=== PATIENT | female | born 1960 | race African-American/Black ===

== ENCOUNTER 2016-04-11 05:04 | Day surgery (SDC) | payer OTHER ==
[2016-04-11] VITALS (31 sets, daily range): BP systolic 84–120; BP diastolic 43–86; PULSE 78–92; RESP 12–25; TEMP 98; Ht 175.3 cm; Wt 58.0 kg
[~2016-04-11] VITALS: Ht 175.3 cm; Wt 58.0 kg
[~2016-04-11 05:04] MED LIST: IBUP-1542 PO; METO-429 PO; TRAM50TA2 PO
[2016-04-11] MEDS ORDERED: SOD CHLORIDE 0.9% 1,000 ML IV STA (07:10)
[2016-04-11] MEDS ORDERED: FAMOTIDINE 20 MG INJ IV STA (07:10)
[2016-04-11] MEDS ORDERED: KETOROLAC 15 MG INJ IV STA (07:10)
[2016-04-11] MEDS ORDERED: ONDANSETRON 4 MG INJ IV STA (07:10)
[2016-04-11 07:58] LABS: ADD UMIC YES; URINE BILIRUBIN (Dip) NEGATIVE (NEGATIVE); URINE BLOOD (Dip) 1+ (NEGATIVE); URINE COLOR LT. YELLOW (YELLOW); URINE GLUCOSE (Dip) NEGATIVE (NEGATIVE); URINE KETONES (Dip) NEGATIVE (NEGATIVE); URINE LEUKOCYTE ESTERASE (Dip) 1+ (NEGATIVE); URINE NITRITE (Dip) NEGATIVE (NEGATIVE); URINE TOTAL PROTEIN (Dip) 1+ (NEGATIVE); URINE UROBILINOGEN (Dip) 0.2 E.U./dL (0.1-1.0)
[2016-04-11 08:06] LABS: BACTERIA,URINE FEW; URINE RBCS 0-2 /HPF (0)
[2016-04-11 08:09] LABS: TRICHOMONAS,URINE FEW
[2016-04-11 08:11] LABS: CHLORIDE 96 mmol/L (97-110); POTASSIUM 3.6 mmol/L (3.5-5.1); SODIUM 141 mmol/L (135-144)
[2016-04-11] MEDS ORDERED: morphine 4 MG/ML VIAL IV STA (08:11)
[2016-04-11] MEDS ORDERED: morphine 4 MG/ML VIAL ONE (08:12)
[2016-04-11 08:13] LABS: ANION GAP 19 (8-16); BILIRUBIN,INDIRECT 0.2 mg/dl (0-1.1); BILIRUBIN,TOTAL 0.2 mg/dl (0.2-1.3); CARBON DIOXIDE 30 mmol/L (21-31); CREATININE 0.89 mg/dl (0.44-1.00)
[2016-04-11 08:14] LABS: ALANINE AMINOTRANSFERASE 19 IU/L (13-69); ALBUMIN/GLOBULIN RATIO 0.93; ALKALINE PHOSPHATASE 109 IU/L (42-121); ASPARTATE AMINO TRANSFERASE 19 IU/L (15-46); BLOOD UREA NITROGEN 15 mg/dl (7-20); CALCIUM 9.7 mg/dl (8.4-10.2); GLUCOSE 96 mg/dl (70-220); TOTAL PROTEIN 8.3 g/dl (6.1-8.1)
--- NOTE | 2016-04-11 08:15 | RADRPT ---
PROCEDURE: XR Chest. CLINICAL INDICATION: Abdominal pain TECHNIQUE: AP view of the chest was obtained. COMPARISON: 12/06/2012 FINDINGS: The cardiomediastinal silhouette is within normal limits. There is a small calcified nodule at the right lung base. There are calcified right mediastinal and hilar nodes. Findings are unchanged. Otherwise the lungs are clear. No pleural effusion or pneumothorax is evident. There is free air u nder the left hemidiaphragm. IMPRESSION: Free air under the left hemidiaphragm; findings suspicious for perforated viscus. CT abdomen-pelvis recommended for further evaluation. Post granulomatous changes. Results called to Dr. ASHBY on 04/11/2016 8:11 AM. RPTAT: VV .Dayron Hidalgo MD, Date Time Electronically viewed and signed by .Dayron Hidalgo MD, on 04/11/2016 08:15 .O/
[2016-04-11 08:16] LABS: BASOPHILS % 0.1 % (0.0-2.0); HEMATOCRIT 41.9 % (37.0-47.0); HEMOGLOBIN 14.2 g/dl (12.0-16.0); LYMPHOCYTES # 1.3 10^3/ul (0.8-2.9); LYMPHOCYTES % 8.1 % (15.0-51.0); MEAN CORPUSCULAR HEMOGLOBIN 29.7 pg (29.0-33.0); MEAN CORPUSCULAR HGB CONC 33.8 g/dl (32.0-37.0); MEAN CORPUSCULAR VOLUME 87.7 fl (82.0-101.0); MONOCYTE # 0.6 10^3/ul (0.3-0.9); NEUTROPHIL # 14.4 10^3/ul (1.6-7.5); NEUTROPHILS % 87.8 % (39.0-77.0); PLATELET COUNT 273 10^3/UL (140-440); RED BLOOD COUNT 4.78 10^6/ul (4.20-5.40); RED CELL DISTRIBUTION WIDTH 15.9 % (11.5-14.5); UNCORRECTED WBC 16.4 10^3/ul (4.8-10.8); WHITE BLOOD COUNT 16.4 10^3/ul (4.8-10.8)
[2016-04-11] MEDS ORDERED: AMLO-147 PO (08:16)
[2016-04-11] MEDS ORDERED: METO-448 PO (08:16)
[2016-04-11 08:28] LABS: TROPONIN-I < 0.012 ng/ml (0.00-0.12)
[2016-04-11 08:33] LABS: CONDITION 1; LH ANALYZER COMMENTS 1; SUSPECT 1
[2016-04-11] MEDS ORDERED: SODIUM CHLORIDE 0.9% 1L BAG IV* STA (08:47)
[2016-04-11] MEDS ORDERED: PIPER-TAZO 3.375 GM IV (PMX) 100 ML IVPB STA (08:47)
[2016-04-11] MEDS ORDERED: metroNIDAZOLE 500 MG/NS (PMX) 100 ML IVPB STA (08:47)
--- NOTE | 2016-04-11 08:53 | RADRPT ---
PROCEDURE: CT Abdomen and Pelvis without contrast. CLINICAL INDICATION: Abdominal pain TECHNIQUE: CT scan of the abdomen and pelvis was performed on a multidetector high-resolution CT s canner without intravenous contrast. Coronal and sagittal reformatted images were obtained from the axial source images. Images were reviewed on a high-resolution PACS workstation. The total exam CTD I equals 6mGy and the total exam DLP equals 297mGy-cm. One or more of the following dose reduction t echniques were used: Automated exposure control, Adjustment of the mA and/or kV according to patient size, and/or use of iterative reconstruction technique. COMPARISON: Correlation chest x-ray today FINDINGS: Evaluation of the solid organs is limited given the lack of intravenous contrast administration. Right lower lobe calcified granuloma. Emphysematous changes. Upper abdominal pneumoperitoneum is identified. The liver, pancreas, and adrenals are grossly unremarkable. Numerous splenic calcifications are iden tified. No focal pericholecystic inflammatory changes. No hydronephrosis. No renal or ureteral stone. No bowel obstruction. Appendix not definitively visualized. Small amount of pelvic free fluid. Aortoiliac atherosclerosis. IMPRESSION: Upper abdominal pneumoperitoneum is most suspicious for bowel perforation. Right lower lobe calcified granuloma and numerous splenic calcifications are likely a sequela of rhonda or granulomatous disease. Emphysema. Small volume of pelvic free fluid. A call report was made to Dr. ASHBY at 04/11/2016 8:52:40 AM. RPTAT: AA .Narinder Meyers MD, Date Time Electronically viewed and signed by .Narinder Meyers MD, MD on 04/11/2016 08:53 .T/
[2016-04-11] MEDS ORDERED: SOD CHLORIDE 0.9% 1,000 ML IV SCH (09:21)
--- NOTE | 2016-04-11 09:26 | ERA ---
ER Documentation Chief Complaint Date/Time DATE: 04/11/16 TIME: 09:23 Chief Complaint abdominal pain since yesterday HPI This is a 55-year-old female presents to the emergency room for evaluation of abdominal pain. The patient states that she has had abdominal pain for the past 3 days in the localizes to the midportion of her abdomen. The patient states that she notices abdominal pain after sexual intercourse 3 days ago. She states that it is an achy pain with no radiation. She does state that she does have a history of cocaine use and was using cocaine heavily for the past 3 days and also states that she has a history of constipation is been drinking an [id number] medication to help with constipation ROS All systems reviewed and are negative except as per history of present illness. Medications Home Meds Reported Medications Metoprolol Tartrate* (Lopressor*) 25 Mg Tab, 25 MG PO BID, #60 TAB 04/11/16 Amlodipine Besylate* (Amlodipine Besylate*) 10 Mg Tablet, 10 MG PO DAILY, #30 TAB 04/11/16 Discontinued Reported Medications Metoprolol Tartrate* (Lopressor*) 50 Mg Tab, 50 MG PO BID, TAB 08/02/14 Discontinued Scripts Tramadol HCl (Tramadol HCl) 50 Mg Tablet, 50 MG PO Q6 Y for SEVERE PAIN LEVEL 7- 10, #20 TAB Prov:NILO NIEVES ASSISTANT SERVICE MANAGER 01/23/16 Ibuprofen* (Motrin*) 600 Mg Tab, 600 MG PO Q6H Y for PAIN AND OR ELEVATED TEMP, #30 TAB Prov:NILO NIEVES NP 01/23/16 Allergies Allergies: Coded Allergies: No Known Allergy (Verified , 04/11/16) PMhx/Soc History of Surgery: No Anesthesia Reaction: No Hx Neurological Disorder: No Hx Respiratory Disorders: No Hx Cardiac Disorders: Yes (HTN) Hx Psychiatric Problems: No Hx Miscellaneous Medical Probl: No Hx Alcohol Use: No Hx Substance Use: No Hx Tobacco Use: Yes Smoking Status: Current every day smoker Physical Exam Vitals Vital Signs Date Time Temp Pulse Resp B/P Pulse Ox O2 Delivery O2 Flow Rate FiO2 04/11/16 09:12 98.0 75 18 110/82 100 Room Air 04/11/16 07:30 78 18 123/92 100 Room Air 04/11/16 05:12 97.7 89 18 113/64 99 Physical Exam INITIAL VITAL SIGNS: Reviewed by me GENERAL: The patient is well developed and appropriate for usual state of health in no apparent distress HEENT: Pupils equal, round, and reactive to light. EOMI. There is no scleral icterus. NECK: C-spine is soft and supple, there is no meningismus. There is no cervical lymphadenopathy. LUNGS: Clear to auscultation bilaterally. There are no rales, wheezes or rhonchi. HEART: Regular rate and rhythm, no murmurs, clicks, rubs or gallops. ABDOMEN: Epigastric tenderness to palpation with some mild guarding in the right upper quadrant or left upper quadrant, hyperactive bowel sounds, EXTREMITIES: There is no peripheral cyanosis or edema. No focal swelling or erythema. NEUROLOGICAL: The patient moves all four extremities with 5/5 strength. Cranial nerves II - XII are intact. Normal gait. Alert and oriented SKIN: There is no apparent rash or petechiae. HEME/LYMPHATIC: There is no evidence of excessive bruising or lymphedema. PSYCHIATRIC: The patient does not appear anxious or depressed. Result Diagram: 04/11/16 0730 04/11/16 0730 Results 24 hrs Laboratory Tests Test 04/11/16 07:30 Alanine Aminotransferase (ALT/SGPT) 19IU/L Albumin 4.0g/dl Albumin/Globulin Ratio 0.93 Alkaline Phosphatase 109IU/L Anion Gap 19 Aspartate Amino Transf (AST/SGOT) 19IU/L Basophils # 0.010^3/ul Basophils % 0.1% Blood Morphology Comment Blood Urea Nitrogen 15mg/dl Calcium Level 9.7mg/dl Carbon Dioxide Level 30mmol/L Chloride Level 96mmol/L Creatinine 0.89mg/dl Direct Bilirubin 0.00mg/dl Eosinophils # 0.010^3/ul Eosinophils % 0.0% Globulin 4.30g/dl Glucose Level 96mg/dl Hematocrit 41.9% Hemoglobin 14.2g/dl Indirect Bilirubin 0.2mg/dl Lipase 13U/L Lymphocytes # 1.310^3/ul Lymphocytes % 8.1% Mean Corpuscular Hemoglobin 29.7pg Mean Corpuscular Hemoglobin Concent 33.8g/dl Mean Corpuscular Volume 87.7fl Mean Platelet Volume 8.0fl Monocytes # 0.610^3/ul Monocytes % 4.0% Neutrophils # 14.410^3/ul Neutrophils % 87.8% Nucleated Red Blood Cells # 0.010^3/ul Nucleated Red Blood Cells % 0.0/100WBC Platelet Count 41188^3/UL Potassium Level 3.6mmol/L Red Blood Count 4.7810^6/ul Red Cell Distribution Width 15.9% Sodium Level 141mmol/L Total Bilirubin 0.2mg/dl Total Protein 8.3g/dl Troponin I < 0.012ng/ml Urine Bacteria FEW Urine Bilirubin NEGATIVE Urine Clarity CLEAR Urine Color LT. YELLOW Urine Epithelial Cells RARE Urine Glucose NEGATIVE% Urine Hemoglobin 1+ Urine Ketones NEGATIVE Urine Leukocyte Esterase 1+ Urine Microscopic RBC 0-2/HPF Urine Microscopic WBC 10-25/HPF Urine Nitrite NEGATIVE Urine Specific Madelia 1.010 Urine Total Protein 1+ Urine Trichomonas FEW Urine Urobilinogen 0.2 E.U./dL Urine pH 6.5 White Blood Count 16.410^3/ul Current Medications Medications (Trade) Dose Ordered Sig/Lillie Route PRN Reason Start Time Stop Time Status Last Admin Dose Admin Sodium Chloride (NS) 1,000 ml @ 1,000 mls/hr Q1H STAT IV 04/11/16 07:10 04/11/16 08:09 DC 04/11/16 07:14 Ondansetron HCl (Zofran Inj) 4 mg ONCE STAT IV 04/11/16 07:10 04/11/16 07:11 DC 04/11/16 07:14 Famotidine (Pepcid Iv) 20 mg ONCE STAT IV 04/11/16 07:10 04/11/16 07:11 DC 04/11/16 07:14 Ketorolac Tromethamine (Toradol) 15 mg ONCE STAT IV 04/11/16 07:10 04/11/16 07:11 DC 04/11/16 07:14 Morphine Sulfate (morphine) 4 mg ONCE STAT IV 04/11/16 08:11 04/11/16 08:13 DC 04/11/16 08:16 Morphine Sulfate (morphine) 4 mg STK-MED ONCE .ROUTE 04/11/16 08:12 04/11/16 08:13 DC Sodium Chloride 1800 ml 1,800 ml BOLUS OVER 2 HOURS STAT IV* 04/11/16 08:47 04/11/16 08:50 DC 04/11/16 09:06 Piperacillin Sod/ Tazobactam Sod 100 ml @ 200 mls/hr ONCE STAT IVPB 04/11/16 08:47 04/11/16 09:16 DC 04/11/16 09:05 Metronidazole 100 ml @ 100 mls/hr ONCE STAT IVPB 04/11/16 08:47 04/11/16 09:46 Sodium Chloride (NS) 1,000 ml @ 80 mls/hr [id number] IV 04/11/16 09:21 04/11/16 21:50 UNV Ondansetron HCl (Zofran Inj) 4 mg BRIDGE ORDER PRN IV NAUSEA AND/OR VOMITING 04/11/16 09:30 04/12/16 09:29 UNV Acetaminophen (Tylenol Tab) 650 mg ER BRIDGE PRN PO MILD PAIN/FEVER 04/11/16 09:30 04/12/16 09:29 UNV Procedures/MDM EKG: Rate/Rhythm: [Normal Sinus Rhythm] QRS, ST, T-waves: [No changes consistent w/ acute ischemia] Impression: [No evidence of ischemia or arrhythmia] Chest X-ray 1V Interpreted by me: Soft Tissue: Free air under diaphragm Bones: No acute abnormalities Mediastinum/Cardiac Silhouette/Lungs: [No acute abnormalities] CT abdomen pelvis without: Upper abdominal pneumoperitoneum is most suspicious for bowel perforation. Right lower lobe calcified granuloma and numerous splenic calcifications are likely a sequela of prior granulomatous disease. Emphysema. Small volume of pelvic free fluid. This 55-year-old female presents to the ER for evaluation of abdominal pain and discomfort. This patient did have mild guarding on my examination. I did obtain a chest x-ray which shows free air under the diaphragm. CT of the abdomen pelvis was obtained which does show pneumoperitoneum suspicious for a bowel perforation. The patient does have a mild leukocytosis. Patient was started on vancomycin and Flagyl per protocol. I have contacted our on-call general surgeon, Dr. Feliz who is aware and states that he will likely take the patient to the operating room for exploration. This patient is hemodynamically stable at this time, and will be placed on the MedSur floor under the care of Dr. Johnston. Critical Care: Excluding all billable procedures Time: 38] minutes Treatments/Evaluations: Close monitoring and treatment of unstable vital signs, cardiorespiratory, and neurologic status, while maintaining tight balance of fluid, respiratory, and cardiac interventions. Departure Diagnosis: Primary Impression: Bowel perforation Additional Impression: Abdominal pain Condition: Serious KEVIN ASHBY DO Apr 11, 2016 09:26
[2016-04-11 09:27] LABS: PROTIME 13.2 Sec (12.2-14.2)
[2016-04-11 09:28] LABS: PARTIAL THROMBOPLASTIN TIME 37.1 Sec (25.0-35.0)
[2016-04-11] MEDS ORDERED: ACETAMINOPHEN 325 MG TAB PO PRN (09:30)
[2016-04-11] MEDS ORDERED: ONDANSETRON 4 MG INJ IV PRN ×2 (09:30→10:00)
[2016-04-11] MEDS ORDERED: morphine 2 MG INJ IV PRN (10:00)
[2016-04-11] MEDS ORDERED: LACTATED RINGER'S 1,000 ML IV SCH (10:00)
[2016-04-11] MEDS ORDERED: NACL 0.9% 3 ML SYG IV SCH (10:00)
--- NOTE | 2016-04-11 10:15 | HPN ---
Date/Time of Note Date/Time of Note DATE: 04/11/16 TIME: 10:14 Interval H&P Admission Note Pt. seen H&P reviewed: No system changes Pt. seen H&P reviewed. No system changes (I attest that I have seen and examined the patient and reviewed the operation in detail, as well as its risks , benefits and alternatives of the operation). I attest that I have seen and examined the patient and reviewed in detail the operation, and its associated risks, benefits and alternative. I have answered all the patient's questions to the best of my ability and the patient wishes to proceed. Please refer to rest of electronic medical record for additional updates. GEGE DORMAN M.D. Apr 11, 2016 10:15
[2016-04-11] MEDS ORDERED: PROPOFOL 20 ML ONE (10:38)
[2016-04-11] MEDS ORDERED: ROCURONIUM 50 MG INJ ONE (10:38)
[2016-04-11] MEDS ORDERED: MIDAZOLAM 1 MG/ML 2 ML INJ ONE (10:39)
[2016-04-11] MEDS ORDERED: DEXAMETHASONE 4 MG/ML 1 ML INJ ONE (10:39)
[2016-04-11] MEDS ORDERED: ONDANSETRON 4 MG INJ ONE (10:39)
[2016-04-11] MEDS ORDERED: SUCCINYLCHOLINE CHLORIDE 100 MG/5 ML SYG IV ONE (10:56)
[2016-04-11] MEDS ORDERED: EPHEDrine SULFATE 50 MG/5 ML SYG ONE (10:56)
[2016-04-11] MEDS ORDERED: LIDOCAINE 2% JELLY 5 ML ONE (10:56)
[2016-04-11] MEDS ORDERED: BUPIVACAINE 0.25% (MPF) 30 ML INJ ONE (11:20)
--- NOTE | 2016-04-11 11:48 | CONS ---
[facility] initial inpatient consultation note. DATE OF CONSULTATION: 04/11/2016 PLACE OF SERVICE: [facility] Emergency Department ASSESSMENT AND PLAN: A very pleasant 55-year-old lady with some comorbidities including prior substance abuse and current marijuana use, current every-day smoker, and hypertension who appears to have perforated bowel, most likely a perforated duodenal ulcer. Other diagnoses in the differential includes other types of perforation and the small intestine and colon. I have explained to the patient our findings and our concerns for the perforated bowel and I have recommended emergency exploration in the form of laparoscopic, possible open exploration with possible bowel resection and possible ostomy. We reviewed the risks, benefits and alternatives in detail and I answered the patient's questions to the best of my ability. I believe that the patient understands and wishes to proceed with the plans. Note that there were no family present during my discussions with the patient. With above assessment, I've recommended the following: Expedited trip to the operating room for above. Thank you again for allowing us to participate in the care of this very pleasant lady and I am certain her wonderful family. If there are any questions , please feel free to call me at [phone]. TOTAL VISIT TIME: 45 minutes of which more than half was spent in [id number] discussion with the patient as well as coordination of care between multiple physicians and providers. UPDATED CLINICAL SUMMARY: A very pleasant 55-year-old lady with comorbid issues including hypertension, every day smoker status, migraines, herpes infection, genital herpes, and positive substance abuse history per tox screen, (cocaine) who was admitted through [facility] Emergency Department on 04/11/2016 with free air under the diaphragm. COMORBIDITIES: 1. Hypertension. 2. Substance abuse (cocaine). 3. Current every day smoker. DATE OF ADMISSION: 04/11/2016 HISTORY OF PRESENT ILLNESS: The patient is a very pleasant 55-year-old lady with above-mentioned history who was admitted through the emergency department at [facility] on 04/11/2016 with abdominal pain of 1 to 2-day duration that brought her into the emergency room and a workup that showed a white blood cell count of 16.4, a chest x-ray that showed free air under the diaphragm and a CT scan of the abdomen and pelvis that showed upper abdominal pneumoperitoneum, most suspicious for bowel perforation. There was also right lower lobe calcified granuloma and numerous splenic calcifications likely sequelae of prior granulomatous disease, emphysema, and a small volume of pelvic free fluid. I was kindly asked to consult and I promptly saw the patient in the emergency department and did a complete history and physical myself. The patient did not have any history of similar pains in the past but has had abdominal discomfort on and off for a number of years. Note that she has visited our emergency department on multiple occasions and she has also been admitted before for various complaints. Patient had her last bowel movement in the last few days and no blood in the stool or urine. No prior significant cardiopulmonary disease other than hypertension and no other complaints. ALLERGIES: NO KNOWN DRUG ALLERGIES. MEDICATIONS: 1. Amlodipine. 2. Lopressor. SOCIAL HISTORY: The patient lives with her family. She has a daughter who lives in town. She is an everyday smoker and occasionally drinks alcohol. There is reported marijuana use as well as history of cocaine abuse in the past. FAMILY HISTORY: No major reported medical, surgical or oncologic problems in the family. REVIEW OF SYSTEMS: Other than the above-mentioned, there are no other pertinent positives or pertinent negatives in a complete 14-point review of systems. PHYSICAL EXAMINATION: GENERAL: The patient appears to be a very pleasant -[place] lady of non - descent, appearing stated age, lying in bed comfortably and in no acute distress. BMI is 18.9. VITAL SIGNS: Show afebrile state and blood pressure is 110/82, pulse 75, respiratory rate 18, pulse oximetry 100% on room air. HEENT: Normocephalic and atraumatic. Extraocular muscles and hearing are grossly intact bilaterally and symmetrically. Sclerae are nonicteric. Oral cavity is clear; oral mucosa appeared to be pink and moist. Dentition: fair. NECK: Supple. There is no lymphadenopathy or JVD. There is no submental, submandibular or supraclavicular lymphadenopathy. CHEST: Rises symmetrically with each breath; patient is breathing comfortably. There are no audible wheezes, rales or rhonchi on the gross exam. HEART: HPulse is regular and palpable on the *right wrist. Capillary refill was normal. Carotid pulses are palpable bilaterally and symmetrically in the neck. EXTREMITIES: Lower extremities contain no pitting edema around the ankles bilaterally and symmetrically. ABDOMEN: Her abdomen is soft, nondistended and moderately tender to palpation with evidence of slight peritoneal signs and mild guarding. No evidence of organomegaly, caput medusae, engorged subcutaneous veins, or ascites. SKIN: Appears to be pink and feels warm to touch. NEUROLOGIC: Awake, alert, and follows commands appropriately. LABORATORY DATA: White blood cell count 16.4, platelets 273. Electrolytes are normal. CO2 30, creatinine 0.89. Liver function and injury parameters are normal. Albumin 4.0, lipase 13. INR 1.0. Urinalysis negative for nitrite and 1+ positive for leukocyte esterase. IMAGING: Pertinent images were reviewed above. Note that I personally reviewed all these images and I agree in general with their overall reported findings. Dictated By: GEGE VÁSQUEZ/LORE Conf#: [id number] DID#: [id number] MTDD
[2016-04-11] MEDS ORDERED: GLYCOPYRROLATE 0.4 MG INJ ONE (12:12)
[2016-04-11] MEDS ORDERED: NEOSTIGMINE 3 MG/3 ML SYRINGE ONE (12:12)
[2016-04-11] MEDS ORDERED: HYDROmorphONE (0.2 MG/ML) 10ML SYG IV ONE (12:49)
--- NOTE | 2016-04-11 13:01 | OPR ---
Date/Time of Note Date/Time of Note DATE: 04/11/16 TIME: 13:01 Operative Report Operative Findings [facility] INPATIENT OPERATIVE NOTE PLACE OF SERVICE: [facility] DATE OF SURGERY: 04/11/2016 PREOPERATIVE DIAGNOSIS: 1. Perforated viscus. 2. Substance abuse (cocaine). 3. Current every day smoker. 4. Hypertension. POSTOPERATIVE DIAGNOSIS: 1. Likely previous perforated viscus with self-sealing 2. Substance abuse (cocaine). 3. Current every day smoker. 4. Hypertension. OPERATION: 1. Exploratory laparoscopy 2. Abdominal lavage SURGEON: Gege Dorman M.D. FORENSIC IDENTIFICATION SPECIALIST: Tim ANESTHESIA: General endotracheal tube anesthesia ANESTHESIOLOGIST: Lilia Pelaez M.D. BRIEF SUMMARY: An otherwise uncomplicated laparoscopic exploration was performed with findings of free fluid and air in the abdominal cavity reminiscent of upper GI perforation (e.g perforated duodenal ulcer) but no obvious hole and no need for any repairs. Abdominal lavage was performed. BRIEF HISTORY: The patient is a very pleasant 55-year-old lady with comorbid issues including hypertension, every day smoker status, migraines, herpes infection, genital herpes, and positive substance abuse history per tox screen, (cocaine) who was admitted through [facility] Emergency Department on 04/11/2016 with free air under the diaphragm. Given the clinical picture, I recommended laparoscopic, possible open exploration with possible bowel resection and possible ostomy. I met with the patient) no family present during any my discussions with the patient) and we reviewed the operation in detail as well as the risks, benefits, alternatives, and expected outcomes of this operation. After careful consideration of all the risks, benefits, and alternatives, the patient appeared to understand those risks and wished to proceed with surgery. For a detailed report of my consultation with patient, please refer to my separate consultation note. STATEMENT OF THE INFORMED CONSENT: The patient appeared to understand the risks of the operation to include, but not be limited to risk of postoperative pain and scar tissue, possible infection or bleeding requiring other interventions such as opening the wound, placement of drainage catheters, or other operative interventions; possible injury to surrounding to structures including bowel, bladder, bile duct, or blood vessels, or solid organs such as liver, kidney, or pancreas requiring other interventions or procedures; possible leakage of bowel from anastomotic sites or suture lines causing significant increase in morbidity and mortality and requiring multiple interventions including but not limited to, placement of drainage catheters, imaging studies, as well as operative interventions; possible other source of sepsis such as urinary tract infections or pneumonias, or other sources of potentially life threatening problems such as deep venous thrombus formation causing pulmonary embolism, myocardial arrhythmias and infarctions, and even . After careful consideration of all their options, the patient and family appeared to understand and wished to proceed with surgery. DESCRIPTION OF PROCEDURE: After obtaining informed consent, the patient was brought into the operating room and was placed in a normal supine position, where successful general endotracheal tube anesthesia was performed. Intravenous access was already in place and intravenous antimicrobials had been appropriately chosen and dosed prior to the operation. The patient's abdominal skin was prepped and draped from the nipple line down to the level of the upper thighs in the usual sterile fashion. We then called a surgical time-out where the patient's identification, date of , nature of the operation, allergies , presence of intravenous antimicrobials, presence of needed equipment, and any other concerns were reviewed and agreed upon by all members of the operating room team. We then started the operation by placing a 5 mm skin incision in the left upper quadrant and introducing a 5 mm [employer] trocar into the peritoneal space using direct entry technique. Note that there was no indication of obvious injury to underlying structures once we entered the peritoneum. We insufflated the abdominal cavity to a maximum pressure of 15 mmHg and again confirmed lack of any injury to underlying structures. Visualization of the abdominal cavity showed slight amount of greenish fluid in the abdominal cavity but no evidence of owen stool or bile. The overall look of the structures were somewhat normal but consistent with a recent enteric perforation. With this information, I injected the future sites of our other trochars with quarter percent Marcaine with epinephrine and introduced 2 more 5 mm trochars into the abdominal cavity under direct visualization. With our instruments in place we then performed a very meticulous exploration of the abdominal cavity with running the bowel essentially from the GE junction all the way down to the rectum. No obvious perforation was found. The stomach appeared to have adhesions onto the undersurface of the left lobe of the liver and the wall was somewhat friable. No obvious area of duodenal ulcer perforation was noted along the anterior wall of the stomach and on the first and second portion of duodenum. The gallbladder was distended but not inflamed and not necrotic. Small intestine appeared to be healthy. Colon appeared to be healthy. Appendix was normal. No sigmoid or descending colon obvious abnormalities. There was no evidence of any actual food or stool in the abdominal cavity. We distended the stomach with normal saline and again did not notice any leakage of fluid from the stomach or first portion of duodenum. With this information, we irrigated the abdominal cavity with at least appears of normal saline and lavaged the excess out prior to removing all her equipment from the abdominal cavity including the pneumoperitoneum, closing the 5 mm trocar sites on the fascia with 3-0 Vicryl suture given how thin the patient is , injecting the trochar sites with quarter percent Marcaine with epinephrine, washing the wounds with copious amounts of normal saline, and then closing the skin using 4-0 Monocryl suture. Light dressing was then applied. At the end of the operation, both the sponge count and needle count were reportedly correct x2. The patient tolerated the procedure without any reported complications. ESTIMATED BLOOD LOSS: Less than 10 mL. BLOOD OR BLOOD PRODUCT TRANSFUSIONS: None to my knowledge. SPECIMENS: None COMPLICATIONS: None. DISPOSITION: Recovery area. Disclaimer: Inadvertent spelling and grammatical errors are likely due to EHR/ dictation software use and do not reflect on the quality of delivered patient care. Also, please note that the electronic time recorded on this node does not necessarily reflect the actual time of the visit. GEGE DORMAN M.D. Apr 11, 2016 13:01
[2016-04-11] MEDS ORDERED: HYDROmorphONE 1 MG/ML SYG IV STA (13:20)
[2016-04-11] MEDS ORDERED: HYDROmorphONE 1 MG/ML SYG IV PRN (13:30)
[2016-04-11] MEDS ORDERED: HYDROCODONE/APAP (5/325) TAB PO PRN ×2 (13:30)
[2016-04-11] MEDS ORDERED: BISACODYL 10 MG SUPP PR PRN (13:30)
[2016-04-11] MEDS ORDERED: DOCUSATE SODIUM 100 MG CAP PO PRN (13:30)
[2016-04-11] MEDS ORDERED: NA PHOSPHATE/BIPHOS 133 ML ENEMA PR PRN (13:30)
[2016-04-11] MEDS ORDERED: HYDROmorphONE (0.2 MG/ML) 10ML SYG IV PRN ×3 (14:00)
[2016-04-11] MEDS ORDERED: LORAZEPAM 2 MG INJ IV PRN (14:00)
[2016-04-11] MEDS ORDERED: EPHEDrine SULFATE 50 MG/5 ML SYG IV PRN (14:00)
[2016-04-11] MEDS ORDERED: DIPHENHYDRAMINE 50 MG INJ IV PRN (14:00)
[2016-04-11] MEDS ORDERED: MEPERIDINE 25 MG INJ IV PRN (14:00)
[2016-04-11] MEDS: D5W-0.45 NACL + KCL 20 MEQ 1,000 ML IV SCH ×2 (15:20→23:33)
--- NOTE | 2016-04-11 16:45 | HP ---
Date/Time of Note Date/Time of Note DATE: 04/11/16 TIME: 16:36 Assessment/Plan VTE Prophylaxis VTE Prophylaxis Intervention: SCD's Lines/Catheters IV Catheter Type (from Nrs): Peripheral IV Assessment/Plan Chief Complaint/Hosp Course Assessment and plan 1. Bowel perforation. Patient status post Exploratory laparoscopy with noted likely previous perforated viscus with self-healing. Continue on IV fluids. Advance diet per surgeon recommendations. Analgesics as needed. 2. History of essential hypertension. Remain stable at present. We'll provide with antihypertensives for systolic blood pressure greater than 160. 3. Current every day smoker. Patient does report severe smoking 1 pack every 3 days for over 20 years. Cessation advised. Patient to be offered nicotine patch 4. History of cocaine use. Cessation advised. 5. Leukocytosis likely secondary to #1. Afebrile at present. Continue on Zosyn for now Admission process time is 40 minutes Discussed plan of care with Dr. Johnston Problems: HPI/ROS Admit Date/Time Admit Date/Time Hx of Present Illness This is a 55-year-old female with past mental history of hypertension, drug use with marijuana/cocaine (per patient), chronic cigarette smoker, who came to [facility] due to reports of acute abdominal pain that was diffuse and 10 out of 10 in intensity. According to the patient she had abdominal pain 1 day prior to admission with associated nausea but no vomiting. She did not report eating anything prior to this. Her pain reportedly got worse and subsequently went to [facility]. Upon further imaging with abdominal CT scan there was seen up her abdominal pneumoperitoneum suspicious for bowel perforation. There is also seen right lower lobe calcified granuloma numerous splenic calcifications likely a sequelae of prior granulomatous disease. Patient was also seen with emphysema per CT abdomen. Patient also was noted with leukocytosis but afebrile. Patient was placed on IV fluids as well as Zosyn antibiotic. She was seen by general surgeon and did undergo exploratory laparoscopy and abdominal lavage. There was seen likely previous perforated viscus with self-healing. Patient did tolerate procedure well and she did report less abdominal pain after procedure. Currently the patient is alert and oriented. Vital signs remain stable. We will evaluate her for the aforementioned issues ROS 12 point review of systems obtained and entirely negative except that mentioned in history of present illness PMH/Family/Social Past Medical History Medical/surgical history hypertension, drug use with marijuana/cocaine (per patient), chronic cigarette smoker, Social History Smoking Status: Current every day smoker Drug Use: cocaine, marijuana Exam/Review of Systems Vital Signs Vitals Vital Signs Date Time Temp Pulse Resp B/P Pulse Ox O2 Delivery O2 Flow Rate FiO2 04/11/16 15:53 97.7 90 20 112/70 04/11/16 14:28 98 Room Air 04/11/16 13:11 3.0 Exam Exam General: No acute signs or symptoms of distress Eyes: pupils equal round, Anicteric sclera Neck: Supple nontender, no JVD Cardiac: S1, S2 auscultated, regular rhythm and rate Pulmonary: Diminished bilaterally GI: Tender upon palpation status post surgical intervention Extremities: No edema bilateral lower extremities Skin: Surgical site on abdomen clean dry and intact Neurologic: Alert to person place and time and situation Labs Result Diagram: 04/11/16 0730 04/11/16 0730 Medications Medications Current Medications Sodium Chloride 1,000 ml @ 80 mls/hr [id number] IV ; Start 04/11/16 at 09:21; Stop 04/11/16 at 21:50 Piperacillin Sod/ Tazobactam Sod (Zosyn 3.375gm/ 100 ml (Pmx)) 100 ml @ 200 mls /hr Q6 IVPB ; Start 04/11/16 at 12:00 Amlodipine Besylate (Norvasc) 10 mg DAILY PO ; Start 04/12/16 at 09:00 Metoprolol Tartrate (Lopressor) 25 mg BID PO ; Start 04/11/16 at 21:00 Ondansetron HCl 4 mg 4 mg Q6H PRN IV NAUSEA AND/OR VOMITING; Start 04/11/16 at 10:00 Potassium Chloride/Dextrose/ Sod Cl (D5-1/2ns + KCl 20 Meq) 1,000 ml @ 100 mls/ hr Q10H IV Last administered on 04/11/16t 15:20; Admin Dose 100 MLS/HR; Start at 13:06 Acetaminophen/ Hydrocodone Bitart ([place] (5/325)) 1 tab Q4H PRN PO PAIN LEVEL 4 -7; Start 04/11/16 at 13:30 Acetaminophen/ Hydrocodone Bitart ([place] (5/325)) 2 tab Q4H PRN PO PAIN LEVEL 7 -10; Start 04/11/16 at 13:30 Hydromorphone HCl (Dilaudid) 0.5 mg Q2H PRN IV PAIN; Start 04/11/16 at 13:30 Hydromorphone HCl (Dilaudid) 1 mg Q2H PRN IV PAIN; Start 04/11/16 at 13:30 Docusate Sodium (Colace) 100 mg BID PRN PO CONSTIPATION; Start 04/11/16 at 13:30 Bisacodyl (Dulcolax Supp) 10 mg BID PRN [place] CONSTIPATION; Start 04/11/16 at 13:30 Sodium Biphosphate/ Sodium Phosphate (Fleet Enema) 133 ml BID PRN [place] CONSTIPATION; Start 04/11/16 at 13:30 Famotidine (Pepcid Iv) 20 mg DAILY IV ; Start 04/12/16 at 09:00 Enoxaparin Sodium (Lovenox) 40 mg DAILY SC ; Start 04/12/16 at 09:00 BREA TO Apr 11, 2016 16:45
[2016-04-11] MEDS: PIPER-TAZO 3.375 GM IV (PMX) 100 ML IVPB SCH ×3 (17:47→23:33)
[2016-04-11] MEDS: METOPROLOL 25 MG TAB PO SCH (20:13)
[2016-04-12] MEDS: PIPER-TAZO 3.375 GM IV (PMX) 100 ML IVPB SCH ×4 (05:29→23:31)
[2016-04-12 06:55] LABS: INR 0.93; PROTIME 12.5 Sec (12.2-14.2)
[2016-04-12 06:56] LABS: PARTIAL THROMBOPLASTIN TIME 32.6 Sec (25.0-35.0)
[2016-04-12 07:08] LABS: ALBUMIN 3.3 g/dl (3.3-4.9)
[2016-04-12 07:09] LABS: POTASSIUM 3.9 mmol/L (3.5-5.1)
[2016-04-12 07:11] LABS: ALBUMIN/GLOBULIN RATIO 1.06; BILIRUBIN,INDIRECT 0.1 mg/dl (0-1.1); BILIRUBIN,TOTAL 0.1 mg/dl (0.2-1.3); CREATININE 0.65 mg/dl (0.44-1.00); TOTAL PROTEIN 6.4 g/dl (6.1-8.1)
[2016-04-12 07:12] LABS: CALCIUM 9.1 mg/dl (8.4-10.2); MAGNESIUM 2.5 mg/dl (1.7-2.5)
[2016-04-12 07:13] LABS: CHOL/HDL RATIO 5.1 RATIO
[2016-04-12 07:31] LABS: THYROID STIMULATING HORMONE 0.244 MIU/L (0.465-4.680)
[2016-04-12 07:41] VITALS: BP 150/94; RESP 18
[2016-04-12 08:15] LABS: PHOSPHORUS 2.1 mg/dl (2.5-4.9)
[2016-04-12 08:19] LABS: HEMATOCRIT 33.2 % (37.0-47.0); HEMOGLOBIN 11.1 g/dl (12.0-16.0); RED BLOOD COUNT 3.86 10^6/ul (4.20-5.40); WHITE BLOOD COUNT 12.6 10^3/ul (4.8-10.8)
[2016-04-12 08:20] LABS: MEAN CORPUSCULAR HEMOGLOBIN 28.8 pg (29.0-33.0); MEAN CORPUSCULAR HGB CONC 33.4 g/dl (32.0-37.0); MEAN PLATELET VOLUME 10.5 fl (7.4-10.4); PLATELET COUNT 264 10^3/UL (140-440); RED CELL DISTRIBUTION WIDTH 15.3 % (11.5-14.5)
[2016-04-12] MEDS: AMLODIPINE 10 MG TAB PO SCH (08:47)
[2016-04-12] MEDS: FAMOTIDINE 20 MG INJ IV SCH (08:47)
[2016-04-12] MEDS: METOPROLOL 25 MG TAB PO SCH ×2 (08:47→20:06)
[2016-04-12] MEDS: ENOXAPARIN 40 MG/0.4 ML SYG SC SCH (08:55)
[2016-04-12] MEDS: D5W-0.45 NACL + KCL 20 MEQ 1,000 ML IV SCH ×2 (09:06→19:39)
[2016-04-12] MEDS: HYDROmorphONE 1 MG/ML SYG IV PRN ×2 (10:58→17:34)
[2016-04-12] MEDS ORDERED: AMLO-147 PO (11:13)
[2016-04-12] MEDS ORDERED: SENN-53 PO (11:13)
[2016-04-12] MEDS ORDERED: METO-448 PO (11:13)
[2016-04-12] MEDS ORDERED: HYDR-3498 PO (11:13)
--- NOTE | 2016-04-12 13:24 | PN ---
Date/Time of Note Date/Time of Note DATE: 04/12/16 TIME: 13:21 Assessment/Plan VTE Prophylaxis VTE Prophylaxis Intervention: SCD's Lines/Catheters IV Catheter Type (from [facility]): Sal[place] Assessment/Plan Chief Complaint/Hosp Course Assessment and plan 1. Bowel perforation. Patient status post Exploratory laparoscopy with noted likely previous perforated viscus with self-healing. cont post-op care. diet per surgeon recommendations. Analgesics as needed. 2. History of essential hypertension. Remain stable at present. We'll provide with antihypertensives for systolic blood pressure greater than 160. 3. Current every day smoker. Patient does report severe smoking 1 pack every 3 days for over 20 years. Cessation advised. 4. History of cocaine use. Cessation advised. 5. Leukocytosis likely secondary to #1. Afebrile at present. Continue on Zosyn for now DISPO/PLAN: cont diet per surgeon. cont on analgesics and post op care. d/c when medically stable and cleared by consultants. Discussed plan of care with Dr. Johnston Problems: Subjective 24 Hr Interval Summary Free Text/Dictation no s/s of distress. comfortable at this time. Exam/Review of Systems Vital Signs Vitals Vital Signs Date Time Temp Pulse Resp B/P Pulse Ox O2 Delivery O2 Flow Rate FiO2 04/12/16 07:41 98.2 88 18 150/94 98 04/11/16 20:10 Room Air 04/11/16 13:11 3.0 Intake and Output 04/11/16 04/11/16 04/12/16 15:00 23:00 07:00 Intake Total 800 ml 800 ml 1900 ml Output Total 520 ml 1200 ml Balance 280 ml 800 ml 700 ml Exam General: No acute signs or symptoms of distress Eyes: pupils equal round, Anicteric sclera Neck: Supple nontender, no JVD Cardiac: S1, S2 auscultated, regular rhythm and rate Pulmonary: Diminished bilaterally GI: Tender upon palpation status post surgical intervention Extremities: No edema bilateral lower extremities Skin: Surgical site on abdomen clean dry and intact Neurologic: Alert to person place and time and situation Results Result Diagram: 04/12/16 0504 04/12/16 0507 Results 24 hrs Laboratory Tests Test 04/12/16 05:04 04/12/16 05:07 Activated Partial Thromboplast Time 32.6 B-Type Natriuretic Peptide 830 H Hematocrit 33.2 #L Hemoglobin 11.1 #L Hemoglobin A1c 5.4 INR International Normalized Ratio 0.93 Lactic Acid Level 1.3 Mean Corpuscular Hemoglobin 28.8 L Mean Corpuscular Hemoglobin Concent 33.4 Mean Corpuscular Volume 86.0 Mean Platelet Volume 10.5 #H Phosphorus Level 2.1 L Platelet Count 264 Prothrombin Time 12.5 Prothrombin Time Ratio 1.0 Red Blood Count 3.86 L Red Cell Distribution Width 15.3 H White Blood Count 12.6 #H Alanine Aminotransferase (ALT/SGPT) 45 Albumin 3.3 Albumin/Globulin Ratio 1.06 Alkaline Phosphatase 89 Anion Gap 14 Aspartate Amino Transf (AST/SGOT) 50 H Blood Urea Nitrogen 11 Calcium Level 9.1 Carbon Dioxide Level 29 Chloride Level 103 Cholesterol Level 154 Cholesterol/HDL Ratio 5.1 Creatinine 0.65 Direct Bilirubin 0.00 Free Thyroxine Index 4.17 H Globulin 3.10 Glucose Level 94 HDL Cholesterol 30 L Indirect Bilirubin 0.1 LDL Cholesterol, Calculated 101 Magnesium Level 2.5 Potassium Level 3.9 Sodium Level 142 Thyroid Stimulating Hormone (TSH) 0.244 L Thyroxine (T4) 10.7 Total Bilirubin 0.1 L Total Protein 6.4 # Triglycerides Level 114 Triiodothyronine (T3) Uptake 39.0 Medications Medications Current Medications Piperacillin Sod/ Tazobactam Sod (Zosyn 3.375gm/ 100 ml (Pmx)) 100 ml @ 200 mls /hr Q6 IVPB Last administered on 04/12/16 12:20; Admin Dose 200 MLS/HR; Start 04/11/16 at 12:00 Amlodipine Besylate (Norvasc) 10 mg DAILY PO Last administered on 04/12/16 08: 47; Admin Dose 10 MG; Start 04/12/16 at 09:00 Metoprolol Tartrate (Lopressor) 25 mg BID PO Last administered on 04/12/16 08: 47; Admin Dose 25 MG; Start 04/11/16 at 21:00 Ondansetron HCl 4 mg 4 mg Q6H PRN IV NAUSEA AND/OR VOMITING; Start 04/11/16 at 10:00 Potassium Chloride/Dextrose/ Sod Cl (D5-1/2ns + KCl 20 Meq) 1,000 ml @ 100 mls/ hr Q10H IV Last administered on 04/11/16 23:33; Admin Dose 100 MLS/HR; Start at 13:06 Acetaminophen/ Hydrocodone Bitart ([place] (5/325)) 1 tab Q4H PRN PO PAIN LEVEL 4 -7; Start 04/11/16 at 13:30 Acetaminophen/ Hydrocodone Bitart ([place] (5/325)) 2 tab Q4H PRN PO PAIN LEVEL 7 -10; Start 04/11/16 at 13:30 Hydromorphone HCl (Dilaudid) 0.5 mg Q2H PRN IV PAIN Last administered on 17:49; Admin Dose 0.5 MG; Start 04/11/16 at 13:30 Hydromorphone HCl (Dilaudid) 1 mg Q2H PRN IV PAIN Last administered on 10:58; Admin Dose 1 MG; Start 04/11/16 at 13:30 Docusate Sodium (Colace) 100 mg BID PRN PO CONSTIPATION; Start 04/11/16 at 13:30 Bisacodyl (Dulcolax Supp) 10 mg BID PRN [place] CONSTIPATION; Start 04/11/16 at 13:30 Sodium Biphosphate/ Sodium Phosphate (Fleet Enema) 133 ml BID PRN [place] CONSTIPATION; Start 04/11/16 at 13:30 Famotidine (Pepcid Iv) 20 mg DAILY IV Last administered on 04/12/16 08:47; Admin Dose 20 MG; Start 04/12/16 at 09:00 Enoxaparin Sodium (Lovenox) 40 mg DAILY SC Last administered on 04/12/16 08:55 ; Admin Dose 40 MG; Start 04/12/16 at 09:00 BREA TO Apr 12, 2016 13:24
[2016-04-12 14:00] VITALS: BP 135/82; PULSE 89; RESP 22
--- NOTE | 2016-04-12 14:31 | PN ---
Date/Time of Note Date/Time of Note DATE: 04/12/16 TIME: 14:31 Assessment/Plan Lines/Catheters IV C[facility] Type (from [facility]): Peripheral IV Assessment/Plan Assessment/Plan [facility] Progress Note Date of Service: 04/12/2016 Today's Assessment & Plan: Overall stable and doing well. No evidence of sepsis. No evidence of obvious postoperative complications. No indication for acute surgical intervention. With above assessment, I've recommended the following for today: 1. Continue current cares and advance diet 2. Increase activity 3. Increase incentive spirometry 4. Recommend gastrology consultation with plans for outpatient upper endoscopy in 1-2 months 5. Patient will likely need proton pump inhibitors as an outpatient 6. Possible discharge home tomorrow Thank you again for your great care of this very pleasant lady and her wonderful family. If there are any questions, please feel free to call me at . TOTAL VISIT TIME: 20 minutes of which more than half was spent in [id number] discussion with the patient as well as coordination of care between multiple physicians and providers. Disclaimer: Inadvertent spelling and grammatical errors are likely due to EHR/ dictation software use and do not reflect on the quality of delivered patient care. Also, please note that the electronic time recorded on this node does not necessarily reflect the actual time of the visit. Updated Clinical Summary: The patient is a very pleasant 55-year-old lady with comorbid issues including hypertension, every day smoker status, migraines, herpes infection, genital herpes, and positive substance abuse history per tox screen, (cocaine) who was admitted through [facility] Emergency Department on 2016 with free air under the diaphragm. Given the clinical picture, I recommended laparoscopic, possible open exploration with possible bowel resection and possible ostomy. I met with the patient) no family present during any my discussions with the patient) and we reviewed the operation in detail as well as the risks, benefits, alternatives, and expected outcomes of this operation. After careful consideration of all the risks, benefits, and alternatives, the patient appeared to understand those risks and wished to proceed with surgery. For a detailed report of my consultation with patient, please refer to my separate consultation note. S/p an otherwise uncomplicated laparoscopic exploration on 04/11/16 with findings of free fluid and air in the abdominal cavity reminiscent of upper GI perforation (e.g perforated duodenal ulcer) but no obvious hole and no need for any repairs. Abdominal lavage was also performed. Comorbidities: 1. Likely previous perforated viscus with self-sealing 2. Substance abuse (cocaine). 3. Current every day smoker. 4. Hypertension. Subjective: No major events or complaints; no major abd pain and under control with medications; still a bit bloated; no n/v/d; no sob or cp; - flatus; - BM; minimal activity Objective: Vitals: See below I's & O's: See below Exam: GENERAL: On exam, the patient was lying in bed and appeared to be comfortable and in no acute distress. ABDOMEN: Soft, nontender and nondistended. Incision dressings are clean, dry and intact without any evidence of underlying erythema, edema, discharge, or hernia. There are no peritoneal signs or guarding. SKIN: Skin appears to be pink and feels warm to touch. NEUROLOGIC: Patient is awake, alert, and follows commands appropriately. Labs: See below Exam/Review of Systems Vital Signs Vitals Vital Signs Date Time Temp Pulse Resp B/P Pulse Ox O2 Delivery O2 Flow Rate FiO2 04/12/16 07:41 98.2 88 18 150/94 98 04/11/16 20:10 Room Air 04/11/16 13:11 3.0 Intake and Output 04/11/16 04/11/16 04/12/16 15:00 23:00 07:00 Intake Total 800 ml 800 ml 1900 ml Output Total 520 ml 1200 ml Balance 280 ml 800 ml 700 ml Results Result Diagram: 04/12/16 0504 04/12/16 0507 GEGE DORMAN M.D. Apr 12, 2016 14:31
[2016-04-12 19:00] VITALS: BP 126/88; RESP 18
[2016-04-12 19:57] VITALS: BP 118/64; PULSE 60; RESP 18
[2016-04-13] MEDS: D5W-0.45 NACL + KCL 20 MEQ 1,000 ML IV SCH (05:49)
[2016-04-13] MEDS: PIPER-TAZO 3.375 GM IV (PMX) 100 ML IVPB SCH ×2 (05:50→11:13)
[2016-04-13] MEDS: HYDROmorphONE 1 MG/ML SYG IV PRN (06:00)
[2016-04-13 08:00] VITALS: BP 137/82; PULSE 67; RESP 18
[2016-04-13] MEDS: FAMOTIDINE 20 MG INJ IV SCH (08:15)
[2016-04-13] MEDS: AMLODIPINE 10 MG TAB PO SCH (08:16)
[2016-04-13] MEDS: METOPROLOL 25 MG TAB PO SCH (08:16)
[2016-04-13] MEDS: ENOXAPARIN 40 MG/0.4 ML SYG SC SCH (08:18)
[2016-04-13 09:17] LABS: POTASSIUM 3.5 mmol/L (3.5-5.1)
[2016-04-13 09:20] LABS: CREATININE 0.76 mg/dl (0.44-1.00)
[2016-04-13 09:21] LABS: CALCIUM 9.6 mg/dl (8.4-10.2)
[2016-04-13 09:26] LABS: BASOPHILS % 0.4 % (0.0-2.0); EOSINOPHILS # 0.1 10^3/ul (0.0-0.5); HEMATOCRIT 38.4 % (37.0-47.0); HEMOGLOBIN 12.9 g/dl (12.0-16.0); LYMPHOCYTES # 2.8 10^3/ul (0.8-2.9); LYMPHOCYTES % 33.8 % (15.0-51.0); MEAN CORPUSCULAR HEMOGLOBIN 29.4 pg (29.0-33.0); MEAN CORPUSCULAR HGB CONC 33.5 g/dl (32.0-37.0); MEAN CORPUSCULAR VOLUME 87.8 fl (82.0-101.0); MEAN PLATELET VOLUME 7.6 fl (7.4-10.4); MONOCYTE # 0.7 10^3/ul (0.3-0.9); MONOCYTES % 8.4 % (0.0-11.0); NEUTROPHIL # 4.6 10^3/ul (1.6-7.5); NEUTROPHILS % 56.4 % (39.0-77.0); PLATELET COUNT 328 10^3/UL (140-440); RED BLOOD COUNT 4.38 10^6/ul (4.20-5.40); RED CELL DISTRIBUTION WIDTH 15.8 % (11.5-14.5); UNCORRECTED WBC 8.1 10^3/ul (4.8-10.8); WHITE BLOOD COUNT 8.1 10^3/ul (4.8-10.8)
[2016-04-13 09:28] LABS: CONDITION 1; LH ANALYZER COMMENTS 1
[2016-04-13] MEDS ORDERED: PANT40TA3 PO (12:00)
--- NOTE | 2016-04-13 12:02 | PDOCDIS ---
Discharge Instructions DIAGNOSIS Discharge Diagnosis: 1. perforated bowel CONDITION Patient Condition: Stable HOME CARE INSTRUCTIONS: Diet Instructions: RegularSpecial Diet: REGULAR ACTIVITY: Activity Restrictions: Slowly Increase Activity Rest between Activity Avoid heavy lifting Do not Drive Avoid Heavy Housework Bathing Restrictions: Shower FOLLOW UP/APPOINTMENTS Appointments 1. Follow up with Dr. Melquiades Feliz in a week 2. Follow up with your primary care provider in 1-2 weeks BREA TO Apr 13, 2016 12:02
--- NOTE | 2016-04-13 13:03 | DS ---
Date/Time of Note Date/Time of Note DATE: 04/13/16 TIME: 13:00 Discharge Summary Admission/Discharge Info Admit Date/Time Discharge Date/Time Final Diagnosis 1. Bowel perforation. 2. History of essential hypertension. 3. Current every day smoker. 4. History of cocaine use. 5. Leukocytosis likely secondary to #1. Consults 1. Dr. Melquiades Feliz Hx of Present Illness This is a 55-year-old female with past mental history of hypertension, drug use with marijuana/cocaine (per patient), chronic cigarette smoker, who came to [facility] due to reports of acute abdominal pain that was diffuse and 10 out of 10 in intensity. According to the patient she had abdominal pain 1 day prior to admission with associated nausea but no vomiting. She did not report eating anything prior to this. Her pain reportedly got worse and subsequently went to [facility]. Upon further imaging with abdominal CT scan there was seen up her abdominal pneumoperitoneum suspicious for bowel perforation. There is also seen right lower lobe calcified granuloma numerous splenic calcifications likely a sequelae of prior granulomatous disease. Patient was also seen with emphysema per CT abdomen. Patient also was noted with leukocytosis but afebrile. Patient was placed on IV fluids as well as Zosyn antibiotic. She was seen by general surgeon and did undergo exploratory laparoscopy and abdominal lavage. There was seen likely previous perforated viscus with self-healing. Patient did tolerate procedure well and she did report less abdominal pain after procedure. Currently the patient is alert and oriented. Vital signs remain stable. We will evaluate her for the aforementioned issues Hospital Course This is a 55-year-old female with history of hypertension, drug abuse marijuana/ cocaine, chronic cigarette smoker, came to [facility] due to reports of abdominal pain. She did report that she initially had diffuse abdominal pain 10 out of 10 in intensity. She did report it happened 1 day prior to her admission. She also had some associated nausea but no vomiting. She did come to [facility] and did have CT scan of her abdomen that did show her to have abdominal pneumoperitoneum suspicious without perforation. Patient was seen by surgeon and she did have expiratory laparoscopy and abdominal lavage. There was seen previous perforated viscus with self-healing. She was optimized medically. She was provided with IV hydration and she did have her diet advanced per surgeon. During her course of stay she did improve. She was provided with analgesics. She was educated about cigarette smoking cessation. The plan of care was discussed with the patient and patient did verbalize her understanding. On the day of discharge patient was in stable condition Discussed plan of care with Discharge process time is 40 minutes Disposition: Home Home Meds Active Scripts Pantoprazole* (Protonix*) 40 Mg Tablet., 40 MG PO DAILY for 30 Days, TAB Prov:BREA TO 04/13/16 Sennosides* (Senna Lax*) 8.6 Mg Tablet, 1 TAB PO Q12H Y for CONSTIPATION, #60 TAB Prov:BREA TO 04/12/16 Hydrocodone Bit-Acetaminophen (Hydrocodone Bit-APAP) 5-325MG Tablet, 1 TAB PO Q4H Y for PAIN LEVEL 4-7, #30 TAB Prov:BREA TO 04/12/16 Metoprolol Tartrate* (Lopressor*) 25 Mg Tab, 25 MG PO BID, #60 TAB Prov:BREA TO 04/12/16 Amlodipine Besylate* (Amlodipine Besylate*) 10 Mg Tablet, 10 MG PO DAILY, #30 TAB Prov:BREA TO 04/12/16 Discontinued Reported Medications Metoprolol Tartrate* (Lopressor*) 50 Mg Tab, 50 MG PO BID, TAB 08/02/14 Discontinued Scripts Tramadol HCl (Tramadol HCl) 50 Mg Tablet, 50 MG PO Q6 Y for SEVERE PAIN LEVEL 7- 10, #20 TAB Prov:NILO NIEVES [employer]ICAL SYSTEMS EDUCATOR 01/23/16 Ibuprofen* (Motrin*) 600 Mg Tab, 600 MG PO Q6H Y for PAIN AND OR ELEVATED TEMP, #30 TAB Prov:NILO NIEVES [employer]INICAL SYSTEMS EDUCATOR 01/23/16 Follow-up Plan CONDITION Patient Condition: Stable HOME CARE INSTRUCTIONS: Diet Instructions: RegularSpecial Diet: REGULAR ACTIVITY: Activity Restrictions: Slowly Increase Activity Rest between Activity Avoid heavy lifting Do not Drive Avoid Heavy Housework Bathing Restrictions: Shower FOLLOW UP/APPOINTMENTS Appointments 1. Follow up with Dr. Melquiades Feliz in a week 2. Follow up with your primary care provider in 1-2 weeks Pending Labs Laboratory Tests Test 04/13/16 08:37 Anion Gap 17 (8-16) Basophils # 0.010^3/ul (0.0-0.1) Basophils % 0.4% (0.0-2.0) Blood Morphology Comment Blood Urea Nitrogen 13mg/dl (7-20) Calcium Level 9.6mg/dl (8.4-10.2) Carbon Dioxide Level 29mmol/L (21-31) Chloride Level 102mmol/L (97-110) Creatinine 0.76mg/dl (0.44-1.00) Eosinophils # 0.110^3/ul (0.0-0.5) Eosinophils % 1.0% (0.0-7.0) Glucose Level 79mg/dl (70-220) Hematocrit 38.4% (37.0-47.0) Hemoglobin 12.9g/dl (12.0-16.0) Lymphocytes # 2.810^3/ul (0.8-2.9) Lymphocytes % 33.8% (15.0-51.0) Mean Corpuscular Hemoglobin 29.4pg (29.0-33.0) Mean Corpuscular Hemoglobin Concent 33.5g/dl (32.0-37.0) Mean Corpuscular Volume 87.8fl (82.0-101.0) Mean Platelet Volume 7.6fl (7.4-10.4) Monocytes # 0.710^3/ul (0.3-0.9) Monocytes % 8.4% (0.0-11.0) Neutrophils # 4.610^3/ul (1.6-7.5) Neutrophils % 56.4% (39.0-77.0) Nucleated Red Blood Cells # 0.010^3/ul (0.0-0.0) Nucleated Red Blood Cells % 0.0/100WBC (0.0-0.0) Platelet Count 81589^3/UL (140-440) Potassium Level 3.5mmol/L (3.5-5.1) Red Blood Count 4.3810^6/ul (4.20-5.40) Red Cell Distribution Width 15.8% (11.5-14.5) Sodium Level 144mmol/L (135-144) White Blood Count 8.110^3/ul (4.8-10.8) BREA TO Apr 13, 2016 13:03
== END 2016-04-13 12:30 | disposition home or self-care (01) ==
LOC: E/R 05:04 → MS1 10:17 → SDS 10:17
PROVIDERS: ATTEND Hospitalist
DX: K63.1 Perforation of intestine (nontraumatic) (principal); F17.200 Nicotine dependence, unspecified, uncomplicated; I10 Essential (primary) hypertension
CPT/HCPCS: 49320; 71010; 74176; 80048; 80053; 80061; 81001; 83036; 83605; 83690; 83735; 83880; 84100; 84436; 84443; 84479; 84484; 85025; 85610; 85730; 86850; 86900; 86901; 87040; 87086; 96374; 96375; J0330; J1100; J1170; J1650; J1885; J2250; J2270; J2405; J2543; J2710; J3010; J3480; J7030; J7120; Z7502; Z7512; Z7610; 81003

== ENCOUNTER 2016-06-25 09:04 | Outpatient (CLI) | payer OTHER ==
[~2016-06-25] VITALS: Ht 175.3 cm; Wt 57.7 kg
[~2016-06-25 09:04] MED LIST changes: +AMLO-147 PO; +HYDR-3498 PO; -IBUP-1542 PO; -METO-429 PO; +METO-448 PO; +PANT40TA3 PO; +SENN-53 PO; -TRAM50TA2 PO
[2016-06-25 09:37] VITALS: Ht 175.3 cm; Wt 57.7 kg
[2016-06-25 09:39] VITALS: BP 118/56; PULSE 58; RESP 18
--- NOTE | 2016-06-25 10:08 | PN ---
Date/Time of Note Date/Time of Note DATE: 06/25/16 TIME: 09:58 Assessment/Plan Assessment/Plan Assessment/Plan [facility] Progress Note Date of Service: 06/25/2016 Today's Assessment & Plan: Overall stable and doing well after surgery. No evidence of sepsis. No evidence of obvious postoperative complications. With above assessment, I've recommended the following for today: 1. F/u with PCP 2. Consideration for GI consultation 3. Patient will likely need anti acid therapy (PPI's) given the most likely diagnosis of perforated duodenal ulcer that most likely had sealed by the time of the operation 4. F/u with us prn Thank you again for your great care of this very pleasant lady and her wonderful family. If there are any questions, please feel free to call me at . TOTAL VISIT TIME: 20 minutes of which more than half was spent in [id number] discussion with the patient as well as coordination of care between multiple physicians and providers. Disclaimer: Inadvertent spelling and grammatical errors are likely due to EHR/ dictation software use and do not reflect on the quality of delivered patient care. Also, please note that the electronic time recorded on this node does not necessarily reflect the actual time of the visit. Updated Clinical Summary: The patient is a very pleasant 55-year-old lady with comorbid issues including hypertension, every day smoker status, migraines, herpes infection, genital herpes, and positive substance abuse history per tox screen, (cocaine) who was admitted through [facility] Emergency Department on 2016 with free air under the diaphragm. Given the clinical picture, I recommended laparoscopic, possible open exploration with possible bowel resection and possible ostomy. I met with the patient) no family present during any my discussions with the patient) and we reviewed the operation in detail as well as the risks, benefits, alternatives, and expected outcomes of this operation. After careful consideration of all the risks, benefits, and alternatives, the patient appeared to understand those risks and wished to proceed with surgery. For a detailed report of my consultation with patient, please refer to my separate consultation note. S/p an otherwise uncomplicated laparoscopic exploration on 04/11/16 with findings of free fluid and air in the abdominal cavity reminiscent of upper GI perforation (e.g perforated duodenal ulcer) but no obvious hole and no need for any repairs. Abdominal lavage was also performed. Comorbidities: 1. Likely previous perforated viscus with self-sealing 2. Substance abuse (cocaine). 3. Current every day smoker. 4. Hypertension. Subjective: No major events or complaints since d/c; no major abd pain and under control with medications; still a bit bloated; no n/v/d; no sob or cp; + flatus; + BM; + activity Objective: Vitals: See below Exam: GENERAL: On exam, the patient was sitting in a chair and appeared to be comfortable and in no acute distress. ABDOMEN: Soft, nontender and nondistended. Incisions are clean, dry and intact without any evidence of underlying erythema, edema, discharge, or hernia. There are no peritoneal signs or guarding. SKIN: Skin appears to be pink and feels warm to touch. NEUROLOGIC: Patient is awake, alert, and follows commands appropriately. Exam/Review of Systems Vital Signs Vitals Vital Signs Date Time Temp Pulse Resp B/P Pulse Ox O2 Delivery O2 Flow Rate FiO2 06/25/16 09:39 97.5 58 18 118/56 97 Room Air GEGE DORMAN M.D. Jun 25, 2016 10:08
== END 2016-06-25 16:28 | disposition home or self-care (01) ==
LOC: HPC 09:04
PROVIDERS: ATTEND Transplant Surgery
DX: Z48.815 Encounter for surgical aftercare following surgery on the digestive system (principal); K26.5 Chronic or unspecified duodenal ulcer with perforation; F14.10 Cocaine abuse, uncomplicated; F17.210 Nicotine dependence, cigarettes, uncomplicated; I10 Essential (primary) hypertension; G43.909 Migraine, unspecified, not intractable, without status migrainosus; A60.00 Herpesviral infection of urogenital system, unspecified
CPT/HCPCS: G0463